=== PATIENT | female | born 1940 | race Asian ===

== ENCOUNTER 2024-05-24 14:28 | Emergency (ER) | payer SELFPAY ==
[~2024-05-24] VITALS: Ht 152.4 cm; Wt 37.0 kg
[2024-05-24 14:38] VITALS: O2SAT 98
[2024-05-24] MEDS: ACETAMINOPHEN 325MG TABLET PO ONE (15:30)
[2024-05-24 16:15] VITALS: BP 125/73; PULSE 84; RESP 17; TEMP 98
== END 2024-05-24 17:23 | disposition home or self-care (01) ==
LOC: ER 14:28
DX: S09.8XXA Other specified injuries of head, initial encounter (principal); W01.0XXA Fall on same level from slipping, tripping and stumbling without subsequent striking against object, initial encounter; Y93.89 Activity, other specified; Y92.89 Other specified places as the place of occurrence of the external cause; Y99.8 Other external cause status
CPT/HCPCS: 72170; 99284